=== PATIENT | female | born 1990 | race Hispanic/Latino ===

== ENCOUNTER 2018-12-18 20:59 | Emergency (ER) | payer BC ==
[2018-12-18] MEDS ORDERED: OXYMETAZOLINE HCL SPRAY 15 ML BOTTLE ONE (21:28)
[2018-12-18] MEDS ORDERED: KETOROLAC TROMETHAMINE 60 MG/2 ML VIAL ONE (21:28)
== END 2018-12-18 22:20 | disposition home or self-care (01) ==
LOC: EDH 20:59
DX: J01.90 Acute sinusitis, unspecified (principal); Z91.018 Allergy to other foods; Z72.0 Tobacco use
CPT/HCPCS: 96372; 99284; J1885

== ENCOUNTER 2019-02-19 04:29 | Inpatient (IN) | payer BC ==
[~2019-02-19] VITALS: Ht 165.1 cm; Wt 88.0 kg
[2019-02-19] MEDS ORDERED: LIDOCAINE HCL 1% 20 ML VIAL ONE (04:40)
[2019-02-19] MEDS ORDERED: TETANUS/DIPHTHERIA TOXOID [ADULT] 0.5 ML VIAL IM ONE (04:41)
[2019-02-19] MEDS ORDERED: CEFAZOLIN SODIUM 1 GM VIAL ONE (05:24)
[2019-02-19] MEDS ORDERED: SODIUM CHLORIDE 0.9% 100 ML IV ONE (05:25)
[2019-02-19 05:39] LABS: BASOPHILS % (AUTO) 0.8 % (0.0-5.0); HEMATOCRIT 42.9 % (36-48); LYMPHOCYTES % (AUTO) 29.8 % (21.0-51.0); MEAN CORPUSCULAR HEMOGLOBIN 31.8 pg (27.0-33.0); MEAN CORPUSCULAR HGB CONC 34.8 g/dL (32.0-36.0); MEAN CORPUSCULAR VOLUME 91.5 fL (79-99); MONOCYTES % (AUTO) 7.1 % (3.0-13.0); NEUTROPHILS % (AUTO) 61.3 % (40.0-77.0); PLATELET COUNT (AUTO) 292 K/uL (130-400); RED BLOOD CELL COUNT(AUTO) 4.69 MIL/uL (4.00-5.50); RED CELL DISTRIBUTION WIDTH 13.4 % (11.0-15.5); WHITE BLOOD COUNT (AUTO) 5.9 K/uL (4.8-10.8)
[2019-02-19] MEDS ORDERED: PHARMACY COMMUNICATION MISC PRN (05:45)
[2019-02-19] MEDS ORDERED: CHLORDIAZEPOXIDE HCL 25 MG CAP PO PRN ×2 (05:45)
[2019-02-19] MEDS ORDERED: ONDANSETRON HCL 4 MG/2 ML VIAL IV PRN (05:45)
[2019-02-19] MEDS ORDERED: ACETAMINOPHEN 325 MG TAB PO PRN ×2 (05:45)
[2019-02-19] MEDS ORDERED: LORAZEPAM 2 MG/ML 1 ML VIAL IVP PRN ×2 (05:45)
[2019-02-19 05:46] LABS: CREATININE 0.8 mg/dL (0.5-1.5); POTASSIUM 3.5 mmol/L (3.5-5.1)
[2019-02-19 05:51] LABS: ALBUMIN 3.3 g/dL (3.5-5.0); BILIRUBIN,TOTAL 0.1 mg/dL (0.2-1.0); TOTAL PROTEIN, SERUM 7.3 g/dL (6.0-8.3)
[2019-02-19 05:52] LABS: INR 0.89 (0.85-1.15); PARTIAL THROMBOPLASTIN TIME 22.2 SEC (26.3-35.5); PROTHROMBIN TIME 9.4 SEC (9.6-11.6)
[2019-02-19] MEDS ORDERED: SODIUM CHLORIDE 0.9% 1000ML 1,000 ML IV ONE ×2 (05:59→06:20)
[2019-02-19] MEDS: THIAMINE HCL 100 MG, FOLIC ACID 1 MG, M.V.I. IV [ADULT] 10 ML in SODIUM CHLORIDE 0.9% 1... IV SCH (06:00)
[2019-02-19] MEDS ORDERED: THIAMINE HCL 100 MG/ML 2ML VIAL ONE (06:07)
[2019-02-19] MEDS ORDERED: INSULIN HUMULIN R 100 UNIT/ML 3ML ONE (06:08)
[2019-02-19 06:45] VITALS: BP 107/70
[2019-02-19 08:00] VITALS: BP 113/63
[2019-02-19] MEDS: MORPHINE SULFATE 2 MG/ML 1ML SYG IV PRN ×3 (10:25→22:13)
[2019-02-19] MEDS: FAMOTIDINE/PF 20 MG/2 ML VIAL IV SCH ×2 (10:26→21:01)
[2019-02-19] MEDS: ENOXAPARIN SODIUM 40 MG/0.4 ML SYRINGE SQ SCH (10:27)
[2019-02-19 11:00] VITALS: BP 118/82
[2019-02-19] MEDS: CEFAZOLIN SODIUM 1 GM VIAL IVP SCH ×2 (13:43→21:01)
[2019-02-19 16:00] VITALS: BP 123/73
--- NOTE | 2019-02-19 17:09 | NUR ---
D/C PLAN CM spoke to pt regarding d/c planning. Pt lives with grandma. States family can assist in care. States she can perform dressing changes independently. Plan to home. CM to f/u. Addendum: 02/19/19 at 1713 by DESMOND LOUIS CM Amended: Links added.
[2019-02-19 19:40] VITALS: BP 130/92
[2019-02-19] MEDS: SODIUM CHLORIDE 0.9% 1000ML 1,000 ML IV SCH (21:01)
--- NOTE | 2019-02-19 21:01 | NUR ---
MEDS SHIFT ASSESSMENT DONE, PLEASE REFER TO CHART. PT COMPLAINT SOF RT KNEE PAINS. DUE MEDS ADMINISTERED AND MEDICATED WITH MORPHINE FOR PAINS. PT TOLERATED MEDS WELL. KEPT RESTED AND COMFORTABLE. CALL LIGHT WITHIN REACH. WILL RE-ASSESS PT. Addendum: 02/19/19 at 2343 by SKY LIMON RN RN Amended: Links added.
[2019-02-19 23:23] VITALS: BP 136/90
[2019-02-20] VITALS (24 sets, daily range): BP systolic 118–158; BP diastolic 63–93
[2019-02-20] MEDS: SODIUM CHLORIDE 0.9% 1000ML 1,000 ML IV SCH ×3 (00:42→11:41)
--- NOTE | 2019-02-20 01:52 | NUR ---
ROUNDS PT RESTING WELL, NO DISTRESS NOTED. KEPT UNDISTURBED FOR NOW. CALL LIGHT WITHIN REACH. KEPT NPO. WILL MONITOR PT.
--- NOTE | 2019-02-20 04:15 | NUR ---
CONSENT PT JUST FINISHED HAVING A SHOWER, TOLERATED ACTIVITY WELL BUT CLAIMS OF RT KNEE PAINS. CONSENT FOR SX SIGNED BY PT AND WITNESSED BY QUALITY PROCESS AUDITOR. MEDICATED WITH MORPHINE IV. KEPT NPO. WILL RE-ASSESS PT.
[2019-02-20] MEDS: MORPHINE SULFATE 2 MG/ML 1ML SYG IV PRN ×3 (04:21→20:33)
[2019-02-20 05:18] LABS: EOSINOPHILS % (AUTO) 2.3 % (0.0-8.0); HEMATOCRIT 39.4 % (36-48); LYMPHOCYTES % (AUTO) 34.2 % (21.0-51.0); MEAN CORPUSCULAR HEMOGLOBIN 31.6 pg (27.0-33.0); MEAN CORPUSCULAR HGB CONC 34.3 g/dL (32.0-36.0); MEAN CORPUSCULAR VOLUME 92.2 fL (79-99); NEUTROPHILS % (AUTO) 55.5 % (40.0-77.0); PLATELET COUNT (AUTO) 265 K/uL (130-400); RED BLOOD CELL COUNT(AUTO) 4.28 MIL/uL (4.00-5.50); RED CELL DISTRIBUTION WIDTH 13.4 % (11.0-15.5); WHITE BLOOD COUNT (AUTO) 6.8 K/uL (4.8-10.8)
[2019-02-20] MEDS: CEFAZOLIN SODIUM 1 GM VIAL IVP SCH ×3 (05:26→22:28)
--- NOTE | 2019-02-20 05:38 | NUR ---
ROUNDS PT RESTING WELL, FAIRLY ASLEEP WITH RESPIRATIONS EVEN AND UNLABORED. NO NOTED DISTRESS. KEPT UNDISTURBED. FOR MORE CARE AND MANAGEMENT.
[2019-02-20] MEDS: THIAMINE HCL 100 MG, FOLIC ACID 1 MG, M.V.I. IV [ADULT] 10 ML in SODIUM CHLORIDE 0.9% 1... IV SCH ×2 (05:43→09:44)
[2019-02-20 05:56] LABS: CREATININE 0.9 mg/dL (0.5-1.5); POTASSIUM 3.7 mmol/L (3.5-5.1)
[2019-02-20] MEDS: ENOXAPARIN SODIUM 40 MG/0.4 ML SYRINGE SQ SCH (09:00)
[2019-02-20] MEDS: FAMOTIDINE/PF 20 MG/2 ML VIAL IV SCH ×2 (09:37→20:28)
--- NOTE | 2019-02-20 14:05 | NUR ---
PT TRANSFERRED TO OR FOR DEBRIDEMENT OF RIGHT KNEE LACERATION WITH CLOSURE.
[2019-02-20] MEDS ORDERED: BACITRACIN 50,000 UNIT VIAL ONE (15:00)
[2019-02-20] MEDS ORDERED: LIDOCAINE HCL MPF 1% 5ML VIAL ONE (15:00)
[2019-02-20] MEDS ORDERED: PROPOFOL 10 MG/ML 20ML VIAL IV ONE (15:00)
[2019-02-20] MEDS ORDERED: FENTANYL CITRATE PF 50 MCG/1 ML 2ML VIAL ONE (15:00)
[2019-02-20] MEDS ORDERED: ONDANSETRON HCL 4 MG/2 ML VIAL ONE (15:26)
[2019-02-20] MEDS ORDERED: KETOROLAC TROMETHAMINE 30MG/ML ONE (15:26)
[2019-02-20] MEDS ORDERED: MEPERIDINE-PF 25 MG/ML SYG ONE (15:57)
[2019-02-21 04:00] VITALS: BP 136/79
[2019-02-21 04:20] LABS: HEMATOCRIT 39.3 % (36-48); MEAN CORPUSCULAR HEMOGLOBIN 31.7 pg (27.0-33.0); MEAN CORPUSCULAR HGB CONC 34.1 g/dL (32.0-36.0); PLATELET COUNT (AUTO) 243 K/uL (130-400); RED BLOOD CELL COUNT(AUTO) 4.23 MIL/uL (4.00-5.50); RED CELL DISTRIBUTION WIDTH 13.6 % (11.0-15.5)
[2019-02-21 04:38] LABS: CREATININE 1.1 mg/dL (0.5-1.5); POTASSIUM 4.3 mmol/L (3.5-5.1)
[2019-02-21] MEDS: MORPHINE SULFATE 2 MG/ML 1ML SYG IV PRN (04:39)
[2019-02-21] MEDS: CEFAZOLIN SODIUM 1 GM VIAL IVP SCH ×2 (06:07→14:00)
[2019-02-21 07:43] VITALS: BP 117/86
[2019-02-21] MEDS ORDERED: METF-444 PO (10:17)
[2019-02-21] MEDS ORDERED: CEPH500B PO (10:17)
[2019-02-21] MEDS: ENOXAPARIN SODIUM 40 MG/0.4 ML SYRINGE SQ SCH (10:22)
[2019-02-21] MEDS: FAMOTIDINE/PF 20 MG/2 ML VIAL IV SCH (10:22)
[2019-02-21 11:03] VITALS: BP 124/86
--- NOTE | 2019-02-21 14:15 | NUR ---
DIET EDUCATION KANWAL provided Diabetes Nutrition Therapy Diet education. KANWAL reviewed reference materials and handouts with Pt. Pt with multiple questions. RD answered all of Pt questions. Pt verbalized understanding. KANWAL encouraged Pt to notify as questions or concerns arise. Addendum: 02/21/19 at [address] RD Amended: Links added.
== END 2019-02-21 14:00 | disposition home or self-care (01) | DRG 580 ==
LOC: EDH 04:29 → OBSVTOIN 05:41 → EDHIP 05:41 → 4BH 06:16
PROVIDERS: ADMIT Hospitalist; ATTEND Hospitalist
PROC: 3E0234Z Introduction of Serum, Toxoid and Vaccine into Muscle, Percutaneous Approach (ICD-10-PCS; 2019-02-19)
PROC: 0KBS0ZZ Excision of Right Lower Leg Muscle, Open Approach (ICD-10-PCS; principal; 2019-02-20 15:04)
DX: S81.011A Laceration without foreign body, right knee, initial encounter (principal); L97.819 Non-pressure chronic ulcer of other part of right lower leg with unspecified severity; Z68.32 Body mass index [BMI] 32.0-32.9, adult; F10.10 Alcohol abuse, uncomplicated; E66.9 Obesity, unspecified; K21.9 Gastro-esophageal reflux disease without esophagitis; F17.210 Nicotine dependence, cigarettes, uncomplicated; J45.909 Unspecified asthma, uncomplicated; W01.0XXA Fall on same level from slipping, tripping and stumbling without subsequent striking against object, initial encounter; Y93.89 Activity, other specified; Y92.89 Other specified places as the place of occurrence of the external cause; Y99.8 Other external cause status; Z23 Encounter for immunization
CPT/HCPCS: 36415; 73562; 80048; 80053; 84702; 85025; 85027; 85610; 85730; 90714; 93005; G0378; J0690; J1650; J1815; J1885; J2175; J2405; J2704; J3010; J3411; J3490; J7030

== ENCOUNTER 2023-07-20 01:10 | Emergency (ER) | payer BC, OTHER ==
[~2023-07-20] VITALS: Ht 165.1 cm; Wt 79.4 kg
[~2023-07-20 01:10] MED LIST: CEPH500B PO; METF-444 PO
[2023-07-20 01:28] LABS: APPEARANCE,URINE CLEAR (CLEAR); BILIRUBIN,URINE NEGATIVE (NEGATIVE); COLOR,URINE COLORLESS (YELLOW); GLUCOSE, URINE (UA) >=1000 mg/dL (NEGATIVE); KETONES,URINE NEGATIVE (NEGATIVE); LEUKOCYTE ESTERASE ,URINE NEGATIVE Leu/uL (NEGATIVE); NITRATE,URINE NEGATIVE (NEGATIVE); OCCULT BLOOD,URINE NEGATIVE (NEGATIVE); PH,URINE 5.5 (5.0-8.0); PROTEIN,URINE NEGATIVE (NEGATIVE); UROBILINOGEN,URINE 0.2 mg/dL (0.2-1.0)
[2023-07-20 01:30] LABS: ADD UA MICROSCOPIC YES
[2023-07-20 01:31] LABS: BASOPHILS # (AUTO) 0.05 K/uL (0.00-0.20); BASOPHILS % (AUTO) 0.7 % (0.0-5.0); EOSINOPHILS # (AUTO) 0.09 K/uL (0.00-0.70); EOSINOPHILS % (AUTO) 1.2 % (0.0-8.0); HEMATOCRIT 39.6 % (36-48); IMMATURE GRANULOCYTE ABSOLUTE 0.02 K/uL (0-1); LYMPHOCYTES # (AUTO) 2.8 K/uL (1.0-4.8); LYMPHOCYTES % (AUTO) 38.5 % (21.0-51.0); MEAN CORPUSCULAR HGB CONC 35.1 g/dL (32.0-36.0); MEAN CORPUSCULAR VOLUME 88.4 fL (79-99); MONOCYTES # (AUTO) 0.6 K/uL (0.1-1.0); MONOCYTES % (AUTO) 8.4 % (3.0-13.0); NEUTROPHILS # (AUTO) 3.8 K/uL (1.8-7.7); NEUTROPHILS % (AUTO) 50.9 % (40.0-77.0); PLATELET COUNT (AUTO) 331 K/uL (130-400); RED BLOOD CELL COUNT(AUTO) 4.48 MIL/uL (4.00-5.50); RED CELL DISTRIBUTION WIDTH 12.4 % (11.0-15.5); WHITE BLOOD COUNT (AUTO) 7.4 K/uL (4.8-10.8)
[2023-07-20 01:42] LABS: AMPHET/METH SCREEN,URINE NEGATIVE (NEGATIVE); BARBITURATE SCREEN, URINE NEGATIVE (NEGATIVE); BENZODIAZEPINES SCREEN,URINE NEGATIVE (NEGATIVE); CANNABINOID SCREEN,URINE NEGATIVE (NEGATIVE); COCAINE SCREEN,URINE POSITIVE (NEGATIVE); OPIATE SCREEN,URINE NEGATIVE (NEGATIVE); PHENCYCLIDINE SCREEN,URINE NEGATIVE (NEGATIVE)
[2023-07-20 01:43] LABS: CARBON DIOXIDE 27 mmol/L (21-32); CHLORIDE 101 mmol/L (101-111); CREATININE 0.8 mg/dL (0.5-1.5); GLOMERULAR FILTR. RATE CALC 99 mL/min (>90); GLUCOSE,RANDOM 279 mg/dL (70-105); POTASSIUM 4.1 mmol/L (3.5-5.1); SODIUM SERUM 137 mmol/L (136-145); UREA NITROGEN, BLOOD 9 mg/dL (7-18)
[2023-07-20 01:48] LABS: ALANINE AMINOTRANSFERASE 19 U/L (12-78); ALBUMIN 3.7 g/dL (3.5-5.0); ALCOHOL, BLOOD 271 mg/dL (0-10); ASPARTATE AMINOTRANSFERASE 12 U/L (10-37); BILIRUBIN,TOTAL 0.2 mg/dL (0.2-1.0); CREATINE KINASE, TOTAL 45 U/L (21-232); TOTAL PROTEIN, SERUM 7.8 g/dL (6.0-8.3)
[2023-07-20 01:48] LABS: BACTERIA,URINE None Seen /HPF (None Seen); RBC,URINE 0-1 /HPF (0-1); WBC,URINE 0-1 /HPF (0-1)
[2023-07-20 01:49] LABS: SQUAMOUS EPITHELIAL CELL,UR Few /HPF (0-2)
[2023-07-20 01:51] LABS: ACETAMINOPHEN < 1 mcg/mL (10-30); SALICYLATE < 2.8 mg/dL (2.8-20.0)
[2023-07-20] MEDS: 0.9%NACL 1000ML 1,710 ML IV ONE (08:24)
[2023-07-20] MEDS: THIAMINE HCL 100 MG/ML 2ML VIAL IVP ONE (08:39)
[2023-07-20 12:47] VITALS: BP 122/80; PULSE 78; RESP 18; O2SAT 98
== END 2023-07-20 12:54 | disposition home or self-care (01) ==
LOC: EDH 01:10
DX: R45.851 Suicidal ideations (principal); F10.129 Alcohol abuse with intoxication, unspecified; E11.65 Type 2 diabetes mellitus with hyperglycemia; J45.909 Unspecified asthma, uncomplicated; Z79.84 Long term (current) use of oral hypoglycemic drugs; Z79.899 Other long term (current) drug therapy; Z98.890 Other specified postprocedural states; Z88.8 Allergy status to other drugs, medicaments and biological substances
CPT/HCPCS: 99283; 96374; 96361; 82550; 80053; 80305; 85025; 36415; 81001; J7030; J3411; G0481